=== PATIENT | female | born 1945 | race African-American/Black ===

== ENCOUNTER 2016-08-28 19:05 | Emergency (ER) | payer MEDICARE, MEDICAID ==
[~2016-08-28] VITALS: Ht 157.5 cm; Wt 73.0 kg
[2016-08-28] MEDS ORDERED: ACETAMINOPHEN 650MG/20.3ML UDC PO ONE (21:15)
[2016-08-28] MEDS ORDERED: KETOROLAC 15MG/ML VIAL IV ONE (21:15)
[2016-08-29 01:08] VITALS: BP 150/71
== END 2016-08-29 01:08 | disposition home or self-care (01) ==
LOC: ER 21:35
DX: S52.592A Other fractures of lower end of left radius, initial encounter for closed fracture (principal); I10 Essential (primary) hypertension; Z98.51 Tubal ligation status; W10.8XXA Fall (on) (from) other stairs and steps, initial encounter; Y93.89 Activity, other specified; Y92.018 Other place in single-family (private) house as the place of occurrence of the external cause
CPT/HCPCS: 29125; 73090; 96374; 99284; J1885